=== PATIENT | female | born 1990 | race American Indian/Alaskan Native ===

== ENCOUNTER 2022-12-20 16:48 | Inpatient (IN) | payer OTHER ==
[~2022-12-20] VITALS: Ht 170.2 cm; Wt 122.0 kg
--- NOTE | ~2022-12-20 | OR ---
[address] [address] Draft DATE OF OPERATION: 12/21/2022 SURGEON: Serafin Nuñez DO PREOPERATIVE DIAGNOSES: 1. Term . 2. Preeclampsia without severe features. 3. Failure to descend. 4. Persistent occiput posterior position. POSTOPERATIVE DIAGNOSES: 1. Term . 2. Preeclampsia without severe features. 3. Failure to descend. 4. Persistent occiput posterior position. 5. hemorrhage. 6. Oprsr-qi-tvuozqj blood-loss anemia. 7. Hematuria. PROCEDURES PERFORMED: 1. Primary low transverse delivery. 2. Cystoscopy. SURGEON: Jennifer Nuñez DO. DERRICK BARGE OPERATOR: Criselda Trinh MD. ANESTHESIA: Epidural. ESTIMATED BLOOD LOSS: 1500 mL. COMPLICATIONS: hemorrhage requiring 2 units of packed red blood cells. FINDINGS: Delivery of viable female , 6 pounds 11 ounces, in the OP deflexed position with PATIENT NAME: GUICHO ROMAN OPERATIVE REPORT DATE OF : [birth year] REPORT #: [id number] PHYSICIAN: SERAFIN NUÑEZ (DAPHNE) PCP: SERAFIN MONTANA MD REPORT IS CONFIDENTIAL AND NOT TO BE RELEASED WITHOUT AUTHORIZATION [address] [address] Draft Apgars of 7 and 9 with normal blood gases. Thick meconium. DRAINS: Lutz to gravity. INDICATIONS: Ms. Roman is a very pleasant 32-year-old, G1, P0, with IUP in the 40 week gestation who developed preeclampsia without severe features. She is admitted to Labor and Delivery for induction of labor and received Cytotec induction. Her cervix weakly dilated to complete and patient pushed well with contractions. No descent was noted after nearly 3 hours of pushing and decision was made to proceed with primary low transverse delivery for persistent OP position with deflexed vertex and failure to descend. Risks, benefits, and alternatives were discussed in detail with the patient. The patient understands and wished to proceed with the procedure. PROCEDURE IN DETAIL: The patient was taken to the operating room where a time-out was performed to confirm correct patient and correct procedure. The patient was prepped and draped in the supine position with a bump under the right hip. The patient received Ancef 3 g, azithromycin 500 mg IV preoperatively and no heparin was indicated. Lutz catheter was inserted. Epidural was bolused and found to be adequate. A Pfannenstiel skin incision was made using a surgical scalpel and carried down to the fascia. Fascial incision was extended bilaterally using curved Meza scissors. Fascia was grasped with Dmitry's, elevated, and the underlying rectus muscles. Muscle dissected off bluntly and sharply. Rectus was divided in the midline using blunt dissection. The peritoneum was entered bluntly. The peritoneal incision was extended using sharp and blunt dissection and the lower uterine segment identified. An Scotty self retractor was placed. Hysterotomy was performed using a surgical scalpel and thick meconium fluid was again noted. Hysterotomy was extended bilaterally using blunt dissection. Surgeon's hand was then placed in the uterine cavity and the vertex was noted to be OP deflexed consistent with vaginal assessment. This was difficult extraction and careful attention was paid to not apply excessive force to the vertex or neck. Eventually, the vertex was gently coaxed into a flexed position and delivered through the hysterotomy by the surgeon and delivery of the remainder of the was accomplished with the assistance of gentle fundal pressure. No nuchal cord was identified. The cord was quickly doubly clamped and cut and the handed to the waiting pediatric team for further care. Cord blood was obtained for routine analysis and for cord gases, which were confirmed normal at the end of the case. Bilateral uterine artery lacerations were noted and these were quickly clamped with a ring forceps and T clamps. However, blood loss was noted to be approximately 1500 mL very quickly. The placenta was then expressed intact with a centrally inserted three-vessel cord and the uterus was noted to clamp down well with minimal bleeding from the uterine cavity. Decision was made to transfuse the patient 2 PATIENT NAME: GUICHO ROMAN OPERATIVE REPORT DATE OF : [birth year] REPORT #: [id number] PHYSICIAN: SERAFIN NUÑEZ (DAPHNE) DO PCP: SERAFIN MONTANA MD REPORT IS CONFIDENTIAL AND NOT TO BE RELEASED WITHOUT AUTHORIZATION [address] [address] Draft units intraoperatively with anesthesia. Attention was turned to repair of the uterus. The right edge of the hysterotomy was evaluated and an extension of the hysterotomy was noted to extend toward the cervix. This was carefully evaluated, clamped, and then repaired with 0 Monocryl in several layers with hemostasis of the uterine arteries. The ureter was palpated and noted to be well away from this location. Attention was then turned to the left edge of the hysterotomy and again the uterine artery laceration was appreciated and this was made hemostatic again with 0 Monocryl. Once control of bleeding was completed with suture, the hysterotomy was repaired in standard fashion using 0 Monocryl in a running locked manner with a second layer of imbricating 0 Monocryl. Some oozing was noted and made hemostatic with flabcs-qf-[id number] sutures of 0 Monocryl. The right hysterotomy extension was noted to have some oozing. This was carefully evaluated and suture ligated using 2-0 chromic with excellent hemostasis appreciated. Carola was applied to this area and pressure was held on the pelvis. Gross hematuria was appreciated. The bilateral ureters and bladder were evaluated and no suspected urinary tract injury was noted, but decision was made to perform cystoscopy at the end of the case. Packing was removed. The pelvis was irrigated and found to be hemostatic. Carola was applied to the hysterotomy into the uterine extension. Normal uterus, tubes, and ovaries were appreciated. The Scotty self retractor was removed and the pelvis again examined, found to be hemostatic. Peritoneum was reapproximated using 2-0 Vicryl in a running nonlocked manner. The rectus was plicated in the midline loosely with three interrupted sutures of 0 Vicryl and made hemostatic with judicious use of Bovie electrocautery. The rectus was irrigated and again found to be hemostatic. Fascia was reapproximated using 0 Vicryl in a running nonlocked manner. Subcu was made hemostatic with Bovie electrocautery and closed in two layers with 3-0 Vicryl and the skin was closed with surgical nick. The uterus was Crede'd for scant amount of bleeding. The drapes were removed and the patient was repositioned with [facility] and re-prepped. Lutz catheter was removed and a rigid 70 degree cystoscope was inserted into the urethral meatus under direct visualization. Normal bladder and bilateral ureteral jets was appreciated. The bladder was drained. Lutz catheter was reinserted and the patient was taken to the PACU in good and stable condition. Sponge, needle, and instrument count were correct x2 at the end of the procedure. Dr. Trinh was present and participated in all portions of the procedure. Appreciate collaborative approach with Anesthesia in coordinating blood transfusion in the management of this case. Serafin Nuñez, PATIENT NAME: ABELGUICHO OPERATIVE REPORT DATE OF : [birth year] REPORT #: [id number] PHYSICIAN: SERAFIN NUÑEZ) PCP: SERAFIN MONTANA MD REPORT IS CONFIDENTIAL AND NOT TO BE RELEASED WITHOUT AUTHORIZATION [facility] [place] [facility] [address] [facility] [place], [place] [address] Draft JDW/MODL /[id number] Copies: ~ PATIENT NAME: ABELGUICHO OPERATIVE REPORT DATE OF : [birth year] REPORT #: [id number] PHYSICIAN: SERAFIN NUÑEZ (DAPHNE) PCP: SERAFIN MONTANA MD REPORT IS CONFIDENTIAL AND NOT TO BE RELEASED WITHOUT AUTHORIZATION
[~2022-12-20 16:48] MED LIST: ACETAMINOPHEN500 MG PO; ASPIRIN81 MG PO; CYCLOBENZAPRINE10 MG PO; ZOLOFT50 MG PO
--- NOTE | 2022-12-21 13:09 | PR ---
[facility] [address] [facility] [place] [address] Signed Progress Notes IP Datetime Report Generated by CPN: 12/21/2022 13:09 PROGRESS NOTES: [id number] Impression: Normal Progression of Labor; Reassuring Heart Rate Procedures: Sterile Vag Exam Plan: Continue Present Management Other Plans: Consider ephedrine Informed Consent Obtain: Vaginal Delivery VITAL SIGNS: [id number] Vital Signs: Reviewed VS Notable Details: No severe range BPs this AM EXAM: [id number] Dilatation: 9.0 Effacement: 90 Station: -2 Contractions: q 2-3 min MEMBRANES: [id number] Comments: Pt seen and examined. Comfortable w/ epidural. Relative hypotension following epidural with decreased HR baseline, but overall reassuring. Will consider ephedrine. Reviewed w/ anesthesia. FETUS A: [id number] FHR Baseline: 125 Variability: Moderate 6-25bpm Accelerations: 15X15 Decelerations: None FHR Category: Category I Presentation: Vertex Comments on Fetus A: No evidence of metabolic FETUS B: [id number] Signing Physician: Serafin Nuñez DO Copies: ~ *Electronically Signed* 12/21/22 2743 SERAFIN NUÑEZ (DAPHNE) DO PATIENT NAME: GUICHO ROMAN PROGRESS NOTE DATE OF : [birth year] PHYSICIAN: SERAFIN NUÑEZ (JD) DO RPT #: [id number] REPORT IS CONFIDENTIAL AND NOT TO BE RELEASED WITHOUT AUTHORIZATION
--- NOTE | 2022-12-21 15:04 | PR ---
[facility] [address] [facility] [place], [place] [address] Signed Progress Notes IP Datetime Report Generated by CPN: 12/21/2022 15:04 PROGRESS NOTES: [id number] Impression: Normal Progression of Labor; Reassuring Heart Rate Procedures: Sterile Vag Exam Plan: Anticipate Vaginal Delivery Other Plans: Consider ephedrine Informed Consent Obtain: Vaginal Delivery VITAL SIGNS: [id number] Vital Signs: Reviewed VS Notable Details: No severe range BPs this AM EXAM: [id number] Dilatation: 10.0 Effacement: 100 Station: 1 Contractions: q 2-3 min MEMBRANES: [id number] Comments: Pt seen and examined. Doing well. Comfortable w/ epidural. FETUS A: [id number] FHR Baseline: 125 Variability: Moderate 6-25bpm Accelerations: 15X15 Decelerations: None FHR Category: Category I Presentation: Vertex Comments on Fetus A: No evidence of metabolic FETUS B: [id number] Signing Physician: Serafin Nuñez DO Copies: ~ *Electronically Signed* 12/21/22 1504 SERAFIN NUÑEZ (DAPHNE) DO PATIENT NAME: GUICHO ROMAN PROGRESS NOTE DATE OF : [birth year] PHYSICIAN: SERAFIN NUÑEZ) DO RPT #: [id number] REPORT IS CONFIDENTIAL AND NOT TO BE RELEASED WITHOUT AUTHORIZATION
--- NOTE | 2022-12-21 16:13 | PR ---
[facility] [address] [facility] [place], [place] [address] Signed Progress Notes IP Datetime Report Generated by CPN: 12/21/2022 16:13 PROGRESS NOTES: [id number] Impression: Normal Progression of Labor; Reassuring Heart Rate Procedures: Sterile Vag Exam Plan: Continue Present Management; Anticipate Vaginal Delivery Other Plans: Consider ephedrine Informed Consent Obtain: Vaginal Delivery VITAL SIGNS: [id number] Vital Signs: Reviewed VS Notable Details: No severe range BPs this AM EXAM: [id number] Dilatation: 10.0 Effacement: 100 Station: 1 Contractions: q 2-3 min MEMBRANES: [id number] Comments: Pt pushing well w/ contractions. Meconium stained fluid. FHT reassuring. Discussed 2nd stage of labor and will continue to push. FETUS A: [id number] FHR Baseline: 125 Variability: Moderate 6-25bpm Accelerations: 15X15 Decelerations: None FHR Category: Category I Presentation: Vertex Comments on Fetus A: No evidence of metabolic FETUS B: [id number] Signing Physician: Serafin Nuñez DO Copies: ~ *Electronically Signed* 12/21/22 5335 SERAFIN NUÑEZ (DAPHNE) DO PATIENT NAME: GUIHCO ROMAN PROGRESS NOTE DATE OF : [birth year] PHYSICIAN: SERAFIN NUÑEZ (JD) DO RPT #: [id number] REPORT IS CONFIDENTIAL AND NOT TO BE RELEASED WITHOUT AUTHORIZATION
--- NOTE | 2022-12-21 17:23 | PR ---
[facility] [address] [place], [place] [address] Signed Progress Notes IP Datetime Report Generated by CPN: 12/21/2022 17:23 PROGRESS NOTES: [id number] Impression: Normal Progression of Labor Other Impressions: slow descent secondary to OP position Procedures: Sterile Vag Exam Other Procedures: Manual rotation of vertex Plan: Continue Present Management Other Plans: Consider ephedrine Informed Consent Obtain: Vaginal Delivery; Section Delivery VITAL SIGNS: [id number] Vital Signs: Reviewed VS Notable Details: No severe range BPs this AM EXAM: [id number] Dilatation: 10.0 Effacement: 100 Station: 1 Contractions: q 2-3 min MEMBRANES: [id number] Comments: Pt seen and examined. Pushing w/ good effort. On exam, direct OP position noted and gentle manual rotation of the vertex was attempted. Noted continued meconium stained fluid continues. FHT reassuring. Discussed ACOG guidelines for 2nd stage of labor. Discussed little to no descensus noted after 2 hrs of good pushing efforts. Will continue pushing as status permits and continue close monitoring. FETUS A: [id number] FHR Baseline: 125 Variability: Moderate 6-25bpm Accelerations: 15X15 Decelerations: None FHR Category: Category I Presentation: Vertex Comments on Fetus A: No evidence of metabolic FETUS B: [id number] Signing Physician: Serafin Nuñez DO *Electronically Signed* 12/21/22 8172 SERAFIN NUÑEZ (DAPHNE) DO PATIENT NAME: GUICHO ROMAN PROGRESS NOTE DATE OF : [birth year] PHYSICIAN: SERAFIN NUÑEZ (JD) DO RPT #: [id number] REPORT IS CONFIDENTIAL AND NOT TO BE RELEASED WITHOUT AUTHORIZATION
--- NOTE | 2022-12-21 18:11 | PR ---
[facility] [address] [place], [place] [address] Signed Progress Notes IP Datetime Report Generated by CPN: 12/21/2022 18:10 PROGRESS NOTES: [id number] Impression: Arrest of Dilatation/Descent Other Impressions: slow descent secondary to OP position Procedures: Sterile Vag Exam Other Procedures: Manual rotation of vertex Plan: Deliver- Section Other Plans: Consider ephedrine Informed Consent Obtain: Section Delivery VITAL SIGNS: [id number] Vital Signs: Reviewed VS Notable Details: No severe range BPs this AM EXAM: [id number] Dilatation: 10.0 Effacement: 100 Station: 1 Contractions: q 2-3 min MEMBRANES: [id number] Comments: Pt pushing w/ contractions. No descent seen in nearly three hours of good pushing efforts. Discussed options for continued pushing vs primary C/S but recommended C/S due to position and lack of progress. Pt reports that she is fatigued and would like primary C/S. All questions answered. Ancef 3g IV and Azithromycin 500mg IV preop. rubber tire and tubes supervisor notified and will notify OR crew FETUS A: [id number] FHR Baseline: 125 Variability: Moderate 6-25bpm Accelerations: 15X15 Decelerations: None FHR Category: Category I Presentation: Vertex Comments on Fetus A: No evidence of metabolic FETUS B: [id number] Signing Physician: Serafin Nuñez DO *Electronically Signed* 12/21/22 8490 SERAFIN NUÑEZ (DAPHNE) DO PATIENT NAME: GUICHO ROMAN PROGRESS NOTE DATE OF : [birth year] PHYSICIAN: SERAFIN NUÑEZ (JD) DO RPT #: [id number] REPORT IS CONFIDENTIAL AND NOT TO BE RELEASED WITHOUT AUTHORIZATION
--- NOTE | 2022-12-23 08:11 | PR ---
[facility] [address] [place], [place] [address] Signed PP Progress Notes Datetime Report Generated by CPN: 12/23/2022 08:11 SUBJECTIVE: [id number] Pain: Within Normal Limits Nausea/Vomiting: Denies Flatus: Yes Bowel Movement: No Vital Signs: [id number] Vital Signs: Reviewed; Within Normal Limits Cardiovascular: Normal Respiratory: Normal Abdomen/Uterus: Normal Lochia: Normal Vulva/Perineum: Not Done Breasts: Not Done CVA Tenderness: Normal Extremities: Normal Incision: Normal Progress: Normal Exam Comments: Fundus firm U-2 nontender. . IMPRESSION/PLAN/PROCEDURES: [id number] Impression: Normal Progression Plan: Continue Present Management Procedures: None Progress Notes: Pt seen and examined. Doing well. Ambulating voiding and tolerating full diet. Pain and lochia minimal. well. No fevers/chills or other concerns. No lightheadedness. Desires d/c home tomorrow. Signing Physician: Serafin Nuñez DO Copies: ~ *Electronically Signed* 12/23/22 0811 SERAFIN NUÑZE (DAPHNE) DO PATIENT NAME: GUICHO ROMAN PROGRESS NOTE DATE OF : [birth year] PHYSICIAN: SERAFIN NUÑEZ) DO RPT #: [id number] REPORT IS CONFIDENTIAL AND NOT TO BE RELEASED WITHOUT AUTHORIZATION
--- NOTE | 2022-12-24 08:16 | PR ---
[facility] [address] [place], [place] [address] Signed PP Progress Notes Datetime Report Generated by CPN: 12/24/2022 08:16 SUBJECTIVE: [id number] Pain: Within Normal Limits Nausea/Vomiting: Denies Flatus: Yes Bowel Movement: No Vital Signs: [id number] Vital Signs: Reviewed; Within Normal Limits Notable Details: Antihypertensive therapy not indicated Cardiovascular: Normal Respiratory: Normal Abdomen/Uterus: Normal Lochia: Normal Vulva/Perineum: Not Done Breasts: Not Done CVA Tenderness: Normal Extremities: Normal Incision: Normal Progress: Normal Exam Comments: Fundus firm U-2 IMPRESSION/PLAN/PROCEDURES: [id number] Impression: Normal Progression Plan: Discharge Procedures: None Progress Notes: Pt seen and examined. Doing well. Ambulating, voiding, and tolerating full diet. Pain and lochia minimal. well. No fevers/chills or other concerns. No DOMINGO, RUQ pain, or visual changes. No lightheadedness/dizziness. Reviewed plan of care. D/C home today w/ BP check in office in 2 days. No sustained elevated BPs. Reviewed s/sx PreE and indications for evaluation. Planning natural family planning for pp contraception. Reviewed labs and rx's. All quesitons answered. Signing Physician: Serafin Nuñez DO Copies: ~ *Electronically Signed* 12/24/22 0816 SERAFIN NUÑEZ (DAPHNE) DO PATIENT NAME: GUICHO ROMAN PROGRESS NOTE DATE OF : 92 PHYSICIAN: SERAFIN NUÑEZ) DO RPT #: [id number] REPORT IS CONFIDENTIAL AND NOT TO BE RELEASED WITHOUT AUTHORIZATION
== END 2022-12-24 11:00 | disposition home or self-care (01) | DRG 787 ==
LOC: FBC 12-21 00:22
PROVIDERS: ADMIT Obstetrics & Gynecology; ATTEND Obstetrics & Gynecology
PROC: 30233N1 Transfusion of Nonautologous Red Blood Cells into Peripheral Vein, Percutaneous Approach (ICD-10-PCS; 2022-12-21)
PROC: 0TJB8ZZ Inspection of Bladder, Via Natural or Artificial Opening Endoscopic (ICD-10-PCS; 2022-12-21)
PROC: 10D00Z1 Extraction of Products of Conception, Low, Open Approach (ICD-10-PCS; principal; 2022-12-21 19:15)
PROC: 04QY0ZZ Repair Lower Artery, Open Approach (ICD-10-PCS; 2022-12-21 19:15)
DX: O14.04 Mild to moderate pre-eclampsia, complicating childbirth (principal); D62 Acute posthemorrhagic anemia; N99.71 Accidental puncture and laceration of a genitourinary system organ or structure during a genitourinary system procedure; O99.02 Anemia complicating childbirth; O32.4XX0 Maternal care for high head at term, not applicable or unspecified; O32.8XX0 Maternal care for other malpresentation of fetus, not applicable or unspecified; O72.1 Other immediate postpartum hemorrhage; R31.0 Gross hematuria; Z37.0 Single live birth; Z20.822 Contact with and (suspected) exposure to COVID-19; Z67.40 Type O blood, Rh positive
CPT/HCPCS: 01961; 36415; 80053; 82565; 82570; 82803; 83615; 84156; 84550; 85025; 85027; 85384; 85610; 85730; 86850; 86900; 86901; 86922; 87502; A9270; J0456; J0690; J1100; J1200; J1650; J1790; J2274; J2370; J2405; J2590; J2795; J3010; J7121; P9016; U0003

== ENCOUNTER 2024-05-16 04:16 | Inpatient (IN) | payer BC ==
[~2024-05-16] VITALS: Ht 167.6 cm; Wt 122.5 kg
[2024-05-16] MEDS ORDERED: SOD+POT BICARB/CITRIC ACID 2 EA TABLET.EFF PO ONE (05:30)
[2024-05-16] MEDS ORDERED: LACTATED RINGER'S 1,000 ML IV PRN (05:30)
[2024-05-16] MEDS ORDERED: LIDOCAINE 2% VISCOUS 6 ML SYR TOP ONE ×2 (05:30→07:30)
[2024-05-16] MEDS ORDERED: fentaNYL citrate 100 MCG/2 ML VIAL ONE (05:39)
[2024-05-16] MEDS ORDERED: MORPHINE SULFATE 1 MG/ML VIAL ONE (05:39)
[2024-05-16] MEDS ORDERED: ondansetron HCL 4 MG/2 ML VIAL ONE (05:39)
[2024-05-16] MEDS ORDERED: OXYTOCIN 10 UNITS/ML VIAL ONE ×3 (05:39→06:52)
[2024-05-16] MEDS ORDERED: LIDOCAINE HCL 2% 5 ML SDV ONE (05:39)
[2024-05-16] MEDS ORDERED: BUPIVACAINE 0.75% IN DEXTROSE 2 ML AMP ONE (05:39)
[2024-05-16 06:00] LABS: HEMATOCRIT 34.6 % (35.0-50.0); HEMOGLOBIN 10.6 g/dL (12.0-18.0); MCHC 30.8 g/dl (30-36); MCV 81.3 fl (81-99); RBC 4.25 M/ul (4.3-5.7); RDW 15.7 (10.5-15.0)
[2024-05-16] MEDS ORDERED: diphenhydrAMINE HCL 50 MG/ML VIAL ONE (06:03)
[2024-05-16] MEDS ORDERED: PHENYLEPHRINE HCL 10 MG/ML VIAL ONE (06:25)
[2024-05-16] MEDS ORDERED: HYDROmorphone HCL 1 MG/ML SYR IV PRN (06:45)
[2024-05-16] MEDS ORDERED: ondansetron HCL 4 MG/2 ML VIAL IV PRN ×2 (06:45→07:30)
[2024-05-16] MEDS ORDERED: KETOROLAC TROMETHAMINE 30 MG/ML VIAL IV PRN (06:45)
[2024-05-16] MEDS ORDERED: diphenhydrAMINE HCL 50 MG/ML VIAL IV PRN (06:45)
[2024-05-16] MEDS ORDERED: METOCLOPRAMIDE HCL 10 MG/2 ML SDV IV PRN (06:45)
[2024-05-16] MEDS ORDERED: PROCHLORPERAZINE EDISYLATE 10 MG/2 ML VIAL IV PRN (06:45)
[2024-05-16] MEDS ORDERED: NALOXONE HCL 0.4 MG SYR IV PRN (06:45)
[2024-05-16] MEDS ORDERED: TRANEXAMIC ACID 1,000 MG/10 ML AMP ONE (06:47)
[2024-05-16] MEDS ORDERED: LACTATED RINGER'S 1,000 ML IV ONE ×2 (06:52→15:00)
[2024-05-16] MEDS ORDERED: SODIUM CHLORIDE 0.9% 20 ML IV ONE (06:52)
[2024-05-16] MEDS ORDERED: DEXAMETHASONE SOD PHOS 4 MG/ML VIAL ONE ×2 (06:52)
[2024-05-16] MEDS ORDERED: Ropivacaine HCl 0.5% 30 ML VIAL ONE (06:52)
[2024-05-16] MEDS ORDERED: CEFAZOLIN SODIUM 3 GM/30 ML SYR IV SCH (07:00)
[2024-05-16] MEDS ORDERED: LACTATED RINGER'S 1,000 ML IV SCH (07:28)
[2024-05-16] MEDS ORDERED: bisacodyL 10 MG SUPP PR PRN (07:30)
[2024-05-16] MEDS ORDERED: HYDROCODONE/ACETA 5/325 TAB PO PRN (07:30)
[2024-05-16] MEDS ORDERED: PROMETHAZINE HCL 25 MG TAB PO PRN (07:30)
[2024-05-16] MEDS ORDERED: OXYTOCIN/0.9 % SODIUM CHLORIDE 500 ML IV SCH (07:30)
[2024-05-16] MEDS ORDERED: PROMETHAZINE HCL 25 MG SUPP PR PRN (07:30)
[2024-05-16] MEDS ORDERED: KETOROLAC TROMETHAMINE 30 MG/ML VIAL IV SCH (08:00)
[2024-05-16 08:12] VITALS: BP 121/74
[2024-05-16 08:13] VITALS: BP 110/67
--- NOTE | 2024-05-16 08:15 | NUR ---
05/16/24 0815 Flora Graham 0732 PT ARRIVED IN PACU WIDE AWAKE. 0735 BABY TO BREAST WITH HELP FROM [facility] RN. PT WITH NO C/O'S. 0745 BED PLUGGED IN. AND PROOFER AT BEDSIDE WITH [facility] RN. 0800 REPORT GIVEN TO RN.
[2024-05-16] MEDS ORDERED: SENNOSIDES/DOCUSATE 1 EA TAB PO SCH (09:00)
[2024-05-16] MEDS ORDERED: SIMETHICONE 125 MG TABLET CHEWABLE PO SCH (11:00)
[2024-05-16 15:53] LABS: ABO O; RH POSITIVE
[2024-05-16 15:59] LABS: ANTIBODY SCREEN POSITIVE; IS CROSSMATCH COMPATIBLE
[2024-05-17] MEDS ORDERED: IBUPROFEN 600 MG TAB PO SCH (02:00)
[2024-05-17] MEDS ORDERED: LACTATED RINGER'S 1,000 ML IV SCH (05:00)
[2024-05-17 05:18] LABS: HEMATOCRIT 25.3 % (35.0-50.0); HEMOGLOBIN 8.1 g/dL (12.0-18.0); MCH 25.9 (27-36); MCHC 31.8 g/dl (30-36); MCV 81.4 fl (81-99); RBC 3.11 M/ul (4.3-5.7); RDW 15.6 (10.5-15.0)
[2024-05-17] MEDS ORDERED: ferumoxytoL 510 MG in SODIUM CHLORIDE 0.9% 100 ML IV ONE (08:45)
--- NOTE | 2024-05-17 13:43 | NUR ---
VISITED DURING SPIRITUAL CARE ROUNDS. PT ON PHONE WITH FAMILY. DID NOT INTERRUPT. PROVIDED PRAYER.
== END 2024-05-18 10:15 | disposition home or self-care (01) | DRG 788 ==
LOC: FBCO 04:16 → FBC 05:14
PROVIDERS: ADMIT Obstetrics & Gynecology; ATTEND Obstetrics & Gynecology
PROC: 10D00Z1 Extraction of Products of Conception, Low, Open Approach (ICD-10-PCS; principal; 2024-05-16 06:30)
DX: O34.211 Maternal care for low transverse scar from previous cesarean delivery (principal); O99.02 Anemia complicating childbirth; Z3A.37 37 weeks gestation of pregnancy; Z37.0 Single live birth
CPT/HCPCS: 01961; 36415; 85027; 86850; 86900; 86901; 86922; A9270; J0690; J1100; J1200; J1885; J2001; J2274; J2371; J2405; J2590; J2795; J3010; J7121; Q0138